=== PATIENT | female | born 1935 | race Caucasian/White ===

== ENCOUNTER 2017-02-13 09:22 | Observation (INO) | payer MEDICARE ==
[2017-02-13] MEDS ORDERED: ASPIRIN 81 MG TABLET, CHEWABLE PO ONE (09:25)
[2017-02-13 09:59] LABS: ABSOLUTE BASOPHILS # (AUTO) 0.1 10^3/uL (0.0-0.2); ABSOLUTE EOSINOPHILS # (AUTO) 0.1 10^3/uL (0.0-0.6); ABSOLUTE LYMPHOCYTES (AUTO) 1.7 10^3/uL (0.5-4.7); ABSOLUTE NEUT (AUTO) 9.8 10^3/uL (1.7-8.2); BASOPHILS % (AUTO) 0.6 % (0-2); EOSINOPHILS % (AUTO) 0.5 % (0-6); HEMATOCRIT 47.4 % (36.0-47.0); HEMOGLOBIN 15.7 g/dL (12.0-15.5); HGB HCT DIFFERENCE -0.3; LYMPHOCYTES % (AUTO) 13.8 % (13-45); MEAN CORPUSCULAR HGB CONC 33.1 g/dL (32.0-36.0); MEAN CORPUSCULAR VOLUME 94 fl (80-97); MONOCYTES % (AUTO) 7.8 % (3-13); RED BLOOD COUNT 5.07 10^6/uL (3.72-5.28); SEGMENTED NEUTROPHILS % (AUTO) 77.3 % (42-78); WHITE BLOOD COUNT 12.6 10^3/uL (4.0-10.5)
--- NOTE | 2017-02-13 10:02 | ER Document Report ---
ED General - General Mode of Arrival: Ambulatory Information source: Patient TRAVEL OUTSIDE OF THE [place] IN LAST 30 DAYS: No - HPI Onset: Other - see HPI note <GLORIA HAJI - Last Filed: 02/13/17 12:27> <MAMIKHANH - Last Filed: 02/13/17 14:23> - General Chief Complaint: Chest Pain Stated Complaint: CHEST PAIN Notes: Patient is a 81 year old female presenting to the ED for chest pain. Patient states she woke up last night around midnight and had "crushing" chest pain all over that lasted for 2 hours. Patient states that she couldn't lay down due to the pain. Patient states that she also had some nausea and vomiting last night. Patient had diarrhea this morning. Patient states the pain is gone but it went away very slowly. Patient states she used her emergency inhaler before going to bed and did not experience any shortness of breath. Patient states she has had some chest pain before about x1 each day for the last month. Patient states this pain was different as it was more severe and intense. Patient has seen a street flusher driver for her daily chest pains [facility]; patient had normal stress tests and labs completed by this street flusher driver. Patient's PCP is Dr. Mortensen. Patient now complains of weakness, nausea, and a headache. Patient's headache was onset yesterday and has continued; patient states it started gradually and describes it as tightness to her entire head. (GLORIA HAJI) - Related Data Allergies/Adverse Reactions: iodine Allergy (Verified 02/13/17 09:39) Sulfa (Sulfonamide Antibiotics) Allergy (Verified 02/13/17 09:38) Past Medical History - General Information source: Patient - Social History Smoking Status: Unknown if Ever Smoked Chew tobacco use (# tins/day): No Frequency of alcohol use: None Drug Abuse: None Family History: None Patient has suicidal ideation: No Patient has homicidal ideation: No - Past Medical History Cardiac Medical History: Reports: Hx Congestive Heart Failure, Hx DVT - leg, Hx Hypercholesterolemia, Hx Hypertension Pulmonary Medical History: Reports: Hx COPD Neurological Medical History: Reports: Hx Cerebrovascular Accident - x5 years ago GI Medical History: Reports: Hx Gastroesophageal Reflux Disease, Hx Hiatal Hernia Past Surgical History: Reports: Hx Herniorrhaphy, Hx Orthopedic Surgery - Right THR, Hx Tonsillectomy - Immunizations Hx Diphtheria, Pertussis, Tetanus Vaccination: Yes <GLORIA HAJI - Last Filed: 02/13/17 12:27> Review of Systems - Review of Systems Constitutional: See HPI, Weakness EENT: No symptoms reported Cardiovascular: See HPI, Chest pain Respiratory: See HPI, Cough Gastrointestinal: See HPI, Diarrhea, Nausea, Vomiting Genitourinary: No symptoms reported Female Genitourinary: No symptoms reported Musculoskeletal: No symptoms reported Skin: No symptoms reported Hematologic/Lymphatic: No symptoms reported Neurological/Psychological: See HPI, Headaches -: Yes All other systems reviewed and negative <GLORIA HAJI - Last Filed: 02/13/17 12:27> Physical Exam - Vital signs Interpretation: Tachycardic - General General appearance: Appears well, Alert In distress: Mild - HEENT Head: Normocephalic, Atraumatic Eyes: Normal Pupils: PERRL Ears: Normal, Other - hearing aid in left ear was removed by patient for ear examination External canal: Normal Tympanic membrane: Normal Mucous membranes: Moist - Respiratory Respiratory status: No respiratory distress Chest status: Nontender Breath sounds: Normal Chest palpation: Normal - Cardiovascular Rhythm: Regular Heart sounds: Normal auscultation Murmur: No - Abdominal Inspection: Normal Distension: No distension Bowel sounds: Normal Tenderness: Nontender Organomegaly: No organomegaly - Back Back: Normal, Nontender - Extremities General upper extremity: Normal inspection, Normal ROM, Normal strength General lower extremity: Normal inspection, Normal ROM, Normal strength, Other - no DVT. No: Edema - Neurological Neuro grossly intact: Yes Cognition: Normal Orientation: AAOx4 Sukhjinder Coma Scale Eye Opening: Spontaneous Sukhjinder Coma Scale Verbal: Oriented [place] Coma Scale Motor: Obeys Commands [place] Coma Scale Total: 15 Speech: Normal Sensory: Normal - Psychological Associated symptoms: Normal affect, Normal mood - Skin Skin Temperature: Warm Skin Moisture: Dry <GLORIA HAJI - Last Filed: 02/13/17 12:27> <KHANH BOLAÑOS - Last Filed: 02/13/17 14:23> - Vital signs Vitals: Temp Pulse Resp BP Pulse Ox 98.0 F 115 H 18 144/82 H 93 02/13/17 09:35 02/13/17 09:35 02/13/17 09:35 02/13/17 09:35 02/13/17 09:35 Course - Laboratory Result Diagrams: 02/13/17 09:54 02/13/17 09:54 <MUNAGLORIA FERNANDEZ - Last Filed: 02/13/17 12:27> - Laboratory Result Diagrams: 02/13/17 09:54 02/13/17 09:54 <KHANH BOLAÑOS - Last Filed: 02/13/17 14:23> - Re-evaluation Re-evalutation: 02/13/17 13:39 I personally performed the services described in the documentation, reviewed and edited the documentation which was dictated to my scribe in my presence, and it accurately records my words and actions. Patient presents emergency Department with 3 chief complaints one is a mild headache gradual onset a few days ago history headaches not the worst of her life not associated with blurred vision or double vision negative neurological examination her CT of the head. No fever or nuchal rigidity. Chest pain as a second complaint stated that last evening for about 2 hours she had severe chest pain that lasted about 2 hours constantly she wasn't short of breath with it she denied it radiated to her jaw her neck or back or her arm. She wanted bother anyone so she went to bed and it's been gone ever since. She vehemently denies that throughout the ED department visit. Her EKG is nonacute her troponin is negative her chest x-ray is nonacute. Patient has denied any chest pain since last night. She has had an extensive cardiac workup in the past except a heart catheterization which she did not want to have. She is no diagnosis of [place] or stents. Third complaint is nausea vomiting diarrhea electrolytes are normal patient relief with Zofran serial abdominal examinations no acute tenderness guarding rebound or rigidity. Obtain a straight catheter urinalysis per request of family no concerns for C. difficile I'll. Serial abdominal examinations no acute tenderness guarding rebound rigidity. Patient initially tachycardic, on reassessment and reevaluation heart rate is 95. She is not short of breath no syncopal event does have a history of a DVT is not short of breath no lower extremity signs of acute DVT and his arms are all toes and the need for PE study. 02/13/17 14:16 patient agrees to be admitted to the hospital accepted under hospitalist stamping machine operator service in stable condition 02/13/17 14:21 (KHANH BOLAÑOS) - Vital Signs Vital signs: Temp Pulse Resp BP Pulse Ox 98.0 F 115 H 10 L 150/74 H 94 02/13/17 09:35 02/13/17 09:35 02/13/17 14:01 02/13/17 14:01 02/13/17 14:01 - Laboratory Laboratory results interpreted by me: 02/13/17 02/13/17 09:54 09:54 WBC 12.6 H Hgb 15.7 H Hct 47.4 H Absolute Neutrophils 9.8 H BUN 21 H Glucose 120 H Calcium 10.4 H - EKG Interpretation by Me Additional EKG results interpreted by me: 02/13/17 14:21 EKG shows sinus tachycardia #[address] segment elevation or depression ( KHANH BOLAÑOS) Discharge <GLORIA HAJI - Last Filed: 02/13/17 12:27> - Discharge Admitting Provider: Hospitalist Unit Admitted: Telemetry <KHANH BOLAÑOS - Last Filed: 02/13/17 14:23> - Discharge Clinical Impression: cephalgia resolved, Nausea vomiting and diarrhea, chest pain resolved Condition: Stable Disposition: HOME, SELF-CARE Additional Instructions: Chest Pain of Unclear Cause The exact cause of your chest pain isn't clear. Fortunately, there is no evidence of a dangerous medical condition. Further testing may be required to find the source of the pain. Most often, we find that this pain is coming from the chest wall -- the muscles or rib joints in the chest. But chest pain can come from the lung and lung lining, the esophagus, the heart valves or heart lining, and even the stomach or gallbladder. Rest. Eat lightly until the pain is gone. We may prescribe medicine for pain and inflammation. You should call the physician immediately if the pain radiates to the shoulder, jaw or arms; if you start to run a fever or develop a cough; or if you develop shortness of breath, or other new or alarming symptoms. Headache The physician does not feel that the headache you are experiencing has a serious underlying cause. Most headaches are due to emotional stress, with resultant muscle tension (tension headache). Occasionally, headaches are secondary to changes in the blood vessels of the scalp (vascular headache and migraine headache). Sometimes, a headache is the first symptom of another developing illness, such as a viral infection. You have no evidence of stroke, bleeding, meningitis, or other serious cause of your headache. The treatment of headaches varies with the severity and cause of the pain. Not all headaches need pain shots. In fact, there is evidence that using narcotics for headaches may make them worse in the long run. The physician will determine the therapy that's in your best interest. If you develop a fever, if the headache is different from any you've previously experienced, or if the headache progressively worsens, then call your physician at once or go to the emergency room. Vomiting Vomiting can be part of many illnesses. Most cases of vomiting are due to gastroenteritis, usually a viral infection in the intestinal tract. There is no specific treatment. The disease will end by itself. For now, the main danger to your child is dehydration. During the first few hours of the illness, give clear liquids, such as Pedialyte. Try to give small quantities frequently, such as a teaspoon of liquid every minute or about an ounce of fluids every five to ten minutes. Medications may be prescribed by the physician for special cases. After an hour or two of fluids without vomiting, add rice cereal, toast, applesauce, or bananas and other more solid foods to the clear liquids. Call the physician or go to the hospital if vomiting increases or blood appears in the bowel movement or vomitus; if your child fails to improve, or if signs of dehydration occur (no wet diapers for eight to twelve hours, tongue and mouth become dry, not acting as alert as usual). Diarrhea Diarrhea means frequent, watery stools. There are many causes. Any problem that keeps the intestinal tract from absorbing water from the stool can lead to diarrhea. A sudden new diarrhea problem is usually caused by a virus, food sensitivity, toxic bacteria, or drugs. In this case, we expect the problem to go away soon. Testing is done only if you seem seriously ill from the diarrhea. If you have chronic diarrhea, or diarrhea that keeps coming back, we need to find out why. Chronic diarrhea can be due to inflammation of the bowels such as Crohn's disease or ulcerative colitis, food sensitivity such as intolerance to lactose or wheat protein, irritable bowel syndrome, and other problems. If your diarrhea is a significant problem but it's not clear why you have it, we' ll refer you to a specialist for further testing. During an episode of diarrhea, drink small amounts (two to six ounces) of clear liquids (soft drinks, sport drinks, herb teas, broth, etc). Take fluids frequently to prevent dehydration. It's usually not a problem to take mild anti- diarrhea medication such as Kaopectate or Pepto-Bismol. As the diarrhea eases, advance to small amounts of bland food (mashed potato, toast) for 24 hours. Call the physician if blood appears in your vomit or stool, if vomiting lasts longer than 24 hours, if the abdominal pain worsens or becomes localized to one area, if you develop high fever, or if you become lightheaded and weak. It is my recommendation that you be admitted to the hospital and see a street flusher driver and be discharged from the hospital with cardiology consultation you have chosen not to do so if you change your mind and want to come immediately back to the emergency department for any concerns whatsoever. Prescriptions: Ondansetron [Zofran Odt 4 mg Tablet] 1 - 2 tab PO Q4H PRN #15 tab.rapdis PRN Reason: For Nausea/Vomiting Referrals: MARCUS TAVARES MD [Primary Care Provider] - Follow up as needed Scribe Documentation - Scribe Written by Scriberic:: Gloria Haji 02/13/17 10:30 acting as scribe for :: Mami <GLORIA HAJI - Last Filed: 02/13/17 12:27>
[2017-02-13 10:18] LABS: ALANINE AMINOTRANSFERASE 18 U/L (9-52); ALBUMIN 4.6 g/dL (3.5-5.0); ALKALINE PHOSPHATASE 92 U/L (38-126); ANION GAP 16 (5-19); ASPARTATE AMINO TRANSFERASE 21 U/L (14-36); BILIRUBIN,DIRECT 0.2 mg/dL (0.0-0.4); BILIRUBIN,TOTAL 0.8 mg/dL (0.2-1.3); BLOOD UREA NITROGEN 21 mg/dL (7-20); CALCIUM 10.4 mg/dL (8.4-10.2); CARBON DIOXIDE 26 mmol/L (22-30); CHLORIDE 100 mmol/L (98-107); CREATINE KINASE 44 U/L (30-135); CREATININE RESULT 0.85 mg/dL (0.52-1.25); GLUCOSE 120 mg/dL (75-110); POTASSIUM 4.7 mmol/L (3.6-5.0); TOTAL PROTEIN 7.8 g/dL (6.3-8.2)
[2017-02-13] MEDS ORDERED: MORPHINE SULFATE 10 MG/ML INJ IV ONE (10:29)
[2017-02-13] MEDS ORDERED: ONDANSETRON HCL INJ/PF 4 MG/2 ML SDV IV ONE ×2 (10:29→13:32)
[2017-02-13 10:36] LABS: TROPONIN I < 0.012 ng/mL
--- NOTE | 2017-02-13 14:25 | ER Document Report ---
Doctor's Note Notes: 02/13/17 14:24 EKG sinus tachycardia [address] segment elevation or depression
[2017-02-13] MEDS ORDERED: ALBUTEROL SULFATE HFA (90 MCG/PUFF) 8 GM MDI (1 MDI/ER DISP) IH PRN (14:26)
[2017-02-13] MEDS ORDERED: ONDANSETRON HCL INJ/PF 4 MG/2 ML SDV IV PRN (14:28)
[2017-02-13] MEDS ORDERED: NITROGLYCERIN 0.4 MG/TAB 25 TAB/BOTTLE SL PRN (14:28)
[2017-02-13] MEDS ORDERED: ALBUTEROL SULFATE HFA (90 MCG/PUFF) 200 PUFF/8.5 GM MDI IH PRN (14:36)
[2017-02-13] MEDS: MORPHINE SULFATE 10 MG/ML INJ IV ONE (14:50)
--- NOTE | 2017-02-13 15:08 | EKG REPORT ---
SEVERITY:- OTHERWISE NORMAL ECG - SINUS TACHYCARDIA : Confirmed by: rEika Freedman 13-Feb-2017 15:08:17
[2017-02-13 15:39] LABS: APPEARANCE,URINE SLIGHTLY-CLOUDY; BILIRUBIN,URINE NEGATIVE (NEGATIVE); CALCIUM OXALATE CRYSTALS,URINE MODERATE /HPF; GLUCOSE, URINE NEGATIVE (NEGATIVE); KETONES,URINE NEGATIVE (NEGATIVE); LEUKOCYTE ESTERASE,URINE SMALL (NEGATIVE); NITRITE,URINE NEGATIVE (NEGATIVE); PROTEIN,URINE NEGATIVE (NEGATIVE); URINE SPECIFIC GRAVITY 1.023; UROBILINOGEN,URINE NEGATIVE mg/dL (<2.0)
[2017-02-13] MEDS ORDERED: LORAZEPAM 1 MG TABLET PO ONE (15:45)
[2017-02-13] MEDS ORDERED: KETOROLAC TROMETHAMINE INJ/PF 30 MG/1 ML SDV IV ONE (15:45)
--- NOTE | 2017-02-13 15:51 | PDOC H&P ---
History of Present Illness Admission Date/PCP: 02/13/17 14:29 MARCUS TAVARES MD Patient complains of: Chest pain that lasted for 3 hrs last night, nausea, vomiting and weakness History of Present Illness: RADHA RUBIO is a 81 year old female who presents to [facility]' s emergency room this morning with complaints of midsternal chest pain that occurred last evening and lasted for a total of 3 hours. She states the pain was intense. She was getting ready to go to bed, when the pain occurred. It was in the middle of her sternum and nonradiating. She states she was unable to lie down because of the pain. After the pain gradually resolved, she began having periods of nausea, vomiting and diarrhea have persisted until her presentation. She also complains of a headache, weakness, and mild joint achiness. She denies any other fever or chills. She has no ill family members at home at the present time. She has no prior history of angina. She states she did undergo complete cardiac workup within the ; they included nuclear stress test, echocardiogram and EKG. She does have a history of paroxysmal atrial fibrillation, COPD, aortic stenosis, and CVA. She has mild right-sided weakness as a result for CVA. She is able to ambulate without assistance. She no longer drives. She lives with her daughter and son-in-law. She states she's had chest pain prior which is what initiated cardiac workup. The pain at that time was not similar to the last denies pain. She's had no further recurrence of chest pain since last night. She has continued however, to have nausea, vomiting and diarrhea. Past Medical History Cardiac Medical History: Reports: Congestive Heart Failure, DVT - leg, Hyperlipidema, Hypertension Pulmonary Medical History: Reports: Chronic Obstructive Pulmonary Disease (COPD) EENT Medical History: Reports: None Neurological Medical History: Reports: Ischemic CVA Endocrine Medical History: Reports: None Renal/ Medical History: Reports: None Malignancy Medical History: Reports: None GI Medical History: Reports: Gastroesophageal Reflux Disease, Hiatal Hernia Musculoskeltal Medical History: Reports: None Skin Medical History: Reports: None Psychiatric Medical History: Reports: None Hematology: Reports: None Infectious Medical History: Reports: None Past Surgical History Past Surgical History: Reports: Herniorrhaphy, Orthopedic Surgery - Right THR, Tonsillectomy Social History Information Source: Patient Lives with: Family Smoking Status: Former Smoker Cigarettes Packs Per Day: 1 Number of Years Smokin Frequency of Alcohol Use: None Hx Recreational Drug Use: Yes Drugs: None - Advance Directive Resuscitation Status: Full Code Surrogate healthcare decision maker:: DaughterJoe Family History Family History: COPD, Hypertension Parental Family History Reviewed: Yes Children Family History Reviewed: Yes Sibling(s) Family History Reviewed.: Yes Medication/Allergy Home Medications: Acetaminophen [Tylenol Extra Strength 500 mg Tablet] 500 mg PO BID 02/13/17 Albuterol Sulfate [Proair HFA Inhalation Aerosol 8.5 gm MDI] 1 puff IH Q4HP PRN 02/13/17 Budesonide/Formoterol Fumarate [Symbicort HFA 160-4.5 mcg Inhaler 6 gm] 2 puff IH Q12 02/13/17 Diltiazem HCl [Diltiazem 24Hr Cd] 180 mg PO BID 02/13/17 Fish Oil/Borage/Flax/Om3,6,9#1 [[place] 3-6-9 1,200 mg Softgel] 1,200 mg PO DAILY 02/13/17 Fluticasone Propionate [Flonase Nasal [place] 50 Mcg/[place] 16 gm] 1 spray NASL DAILY 02/13/17 Levothyroxine Sodium [Synthroid] 100 mcg PO DAILY 02/13/17 Lorazepam [Ativan 1 mg Tablet] 1 mg PO TID 02/13/17 Montelukast Sodium [Singulair 10 mg Tablet] 10 mg PO QHS 02/13/17 Multivitamin [Daily Multiple Vitamin] 1 tab PO DAILY 02/13/17 Ondansetron [Zofran Odt 4 mg Tablet] 1 - 2 tab PO Q4H PRN #15 tab.rapdis Paroxetine HCl [Paxil] 10 mg PO QHS 02/13/17 Rivaroxaban [Xarelto] 20 mg PO DAILY 02/13/17 Spironolactone [Aldactone 25 mg Tablet] 25 mg PO DAILY 02/13/17 Tramadol HCl [Ultram] 100 mg PO TID 02/13/17 Allergies/Adverse Reactions: iodine Allergy (Verified 02/13/17 09:39) Sulfa (Sulfonamide Antibiotics) Allergy (Verified 02/13/17 09:38) Review of Systems Constitutional: PRESENT: chills, headache(s), weakness. ABSENT: fever(s), weight gain, weight loss Eyes: ABSENT: visual disturbances Ears: ABSENT: hearing changes Cardiovascular: PRESENT: chest pain. ABSENT: dyspnea on exertion, edema, orthropnea, palpitations Respiratory: PRESENT: cough, sputum Gastrointestinal: PRESENT: abdominal pain, diarrhea, nausea, vomiting Genitourinary: ABSENT: dysuria, hematuria Musculoskeletal: ABSENT: joint swelling Integumentary: ABSENT: rash, wounds Neurological: ABSENT: abnormal gait, abnormal speech, confusion, dizziness, focal weakness, syncope Psychiatric: ABSENT: anxiety, depression, homidical ideation, suicidal ideation Endocrine: ABSENT: cold intolerance, heat intolerance, polydipsia, polyuria Hematologic/Lymphatic: ABSENT: easy bleeding, easy bruising Physical Exam Vital Signs: Temp Pulse Resp BP Pulse Ox 98.0 F 115 H 10 L 150/74 H 94 02/13/17 09:35 02/13/17 09:35 02/13/17 14:01 02/13/17 14:01 02/13/17 14:01 General appearance: PRESENT: no acute distress, hard of hearing, well-developed , well-nourished Head exam: PRESENT: atraumatic, normocephalic Eye exam: PRESENT: conjunctiva pink, EOMI, PERRLA. ABSENT: scleral icterus Ear exam: PRESENT: normal external ear exam Mouth exam: PRESENT: moist, tongue midline Neck exam: ABSENT: carotid bruit, JVD, lymphadenopathy, thyromegaly Respiratory exam: PRESENT: clear to auscultation marvin. ABSENT: rales, rhonchi, wheezes Cardiovascular exam: PRESENT: RRR. ABSENT: diastolic murmur, rubs, systolic murmur Pulses: PRESENT: normal dorsalis pedis pul Vascular exam: PRESENT: normal capillary refill GI/Abdominal exam: PRESENT: hyperactive bowel sounds, soft. ABSENT: distended, guarding, mass, organolmegaly, rebound, tenderness Rectal exam: PRESENT: deferred Extremities exam: PRESENT: full ROM. ABSENT: calf tenderness, clubbing, pedal edema Musculoskeletal exam: PRESENT: ambulatory Neurological exam: PRESENT: alert, awake, oriented to person, oriented to place , oriented to time, oriented to situation, CN II-XII grossly intact. ABSENT: motor sensory deficit Psychiatric exam: PRESENT: appropriate affect, normal mood. ABSENT: homicidal ideation, suicidal ideation Skin exam: PRESENT: dry, intact, warm. ABSENT: cyanosis, rash Results Impressions: Chest X-Ray 02/13/17 09:25 IMPRESSION: Chronic bandlike atelectasis in the lingula. Benign calcified granuloma right upper lobe No acute changes Head CT 02/13/17 10:29 IMPRESSION: CHRONIC CHANGES OF ATROPHY AND MICROVASCULAR ISCHEMIA. NO ACUTE PROCESS. Assessment & Plan - Diagnosis (1) Chest pain Qualifiers: Chest pain type: unspecified Qualified Code(s): R07.9 - Chest pain, unspecified Is this a current diagnosis for this admission?: YesPlan: Atypical for cardiac. Lasting 3 hrs occurred at rest. Patient has history of hiatal hernia and GERD (2) Paroxysmal atrial fibrillation Is this a current diagnosis for this admission?: YesPlan: Patient Panzarella toe and Cardizem for rate control. Presently normal sinus rhythm (3) Essential (primary) hypertension Is this a current diagnosis for this admission?: YesPlan: Continue patient's home medication she is presently normotensive (4) Nausea vomiting and diarrhea Is this a current diagnosis for this admission?: YesPlan: Most likely viral in origin. We'll hydrate her gently with IV fluids overnight with when necessary Zofran (5) Right sided cerebral hemisphere cerebrovascular accident (CVA) Is this a current diagnosis for this admission?: YesPlan: Old right-sided residual weakness. (6) Hiatal hernia Is this a current diagnosis for this admission?: YesPlan: PPI therapy. Avoid heavy large meals. Eating prior to bedtime (7) COPD (chronic obstructive pulmonary disease) Qualifiers: COPD type: chronic bronchitis Is this a current diagnosis for this admission?: YesPlan: Continue inhalers. - Time Time Spent: 50 to 70 Minutes Critical Time spent with patient: 25-34 minutes Medications reviewed and adjusted accordingly: Yes Anticipated discharge: Home
[2017-02-13] MEDS ORDERED: DILTIAZEM HCL 120 MG CAP.SR.24H PO SCH (18:00)
[2017-02-13] MEDS: NORMAL SALINE 1000 ML 1,000 ML IV PRN (18:44)
[2017-02-13] MEDS: ACETAMINOPHEN 325 MG TABLET PO PRN (21:56)
[2017-02-13] MEDS: TRAMADOL HCL 50 MG TABLET PO PRN (21:57)
[2017-02-13] MEDS: DILTIAZEM HCL 120 MG CAP.SR.24H PO SCH (21:57)
[2017-02-13] MEDS: LORAZEPAM 1 MG TABLET PO SCH (21:58)
[2017-02-13] MEDS: BUDESONIDE/FORMOTEROL 160-4.5 MCG 60 PUFF/6 GM MDI IH SCH (21:59)
[2017-02-13] MEDS ORDERED: PAROXETINE HCL 20 MG TABLET PO SCH (22:00)
[2017-02-13] MEDS ORDERED: (PENDING PHARMACY ID) (Paroxetine Hcl [Paxil] 10 MG) PO SCH (22:00)
[2017-02-13] MEDS ORDERED: MONTELUKAST SODIUM 10 MG TABLET PO SCH (22:00)
[2017-02-14] MEDS: NORMAL SALINE 1000 ML 1,000 ML IV PRN ×2 (02:43→05:56)
[2017-02-14 05:02] LABS: CHOLESTEROL 211.62 mg/dL (0-200); Direct HDL 64 mg/dL (>40); TRIGLYCERIDES 145 mg/dL (<150)
[2017-02-14 05:13] LABS: DIRECT LDL 109 mg/dL (<100)
[2017-02-14] MEDS: LORAZEPAM 1 MG TABLET PO SCH (05:54)
[2017-02-14] MEDS: ACETAMINOPHEN 325 MG TABLET PO PRN (06:08)
[2017-02-14] MEDS ORDERED: LEVOTHYROXINE SODIUM 0.1 MG TABLET PO SCH (08:00)
[2017-02-14 09:39] VITALS: BP 136/61
[2017-02-14] MEDS ORDERED: SPIRONOLACTONE 25 MG TABLET PO SCH (10:00)
[2017-02-14] MEDS ORDERED: FLUTICASONE NASAL SPRAY 50 MCG/SPRY 120 SPRAY/16 GM NASL SCH (10:00)
[2017-02-14] MEDS ORDERED: RIVAROXABAN 10 MG TABLET PO SCH (10:00)
[2017-02-14] MEDS ORDERED: ASPIRIN 81 MG TABLET, ENT COATED PO SCH (10:00)
[2017-02-14] MEDS: DILTIAZEM HCL 120 MG CAP.SR.24H PO SCH (11:46)
[2017-02-14] MEDS: BUDESONIDE/FORMOTEROL 160-4.5 MCG 60 PUFF/6 GM MDI IH SCH (11:50)
[2017-02-14] MEDS: TRAMADOL HCL 50 MG TABLET PO PRN (11:55)
--- NOTE | 2017-02-14 14:55 | PDOC DISCHARGE SUMMARY ---
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) Is this a current diagnosis for this admission?: Yes (6) Hiatal hernia Is this a current diagnosis for this admission?: Yes (7) COPD (chronic obstructive pulmonary disease) Is this a current diagnosis for this admission?: Yes - Additional Information Resuscitation Status: Full Code Discharge Diet: Regular Discharge Activity: Activity As Tolerated, Balance Activity w/Rest Home Medications: Acetaminophen [Tylenol Extra Strength 500 mg Tablet] 500 mg PO BID 02/13/17 Albuterol Sulfate [Proair HFA Inhalation Aerosol 8.5 gm MDI] 1 puff IH Q4HP PRN 02/13/17 Budesonide/Formoterol Fumarate [Symbicort HFA 160-4.5 mcg Inhaler 6 gm] 2 puff IH Q12 02/13/17 Diltiazem HCl [Diltiazem 24Hr Cd] 180 mg PO BID 02/13/17 Fish Oil/Borage/Flax/Om3,6,9#1 [[place] 3-6-9 1,200 mg Softgel] 1,200 mg PO DAILY 02/13/17 Fluticasone Propionate [Flonase Nasal [place] 50 Mcg/[place] 16 gm] 1 spray NASL DAILY 02/13/17 Levothyroxine Sodium [Synthroid] 100 mcg PO DAILY 02/13/17 Lorazepam [Ativan 1 mg Tablet] 1 mg PO TID 02/13/17 Montelukast Sodium [Singulair 10 mg Tablet] 10 mg PO QHS 02/13/17 Multivitamin [Daily Multiple Vitamin] 1 tab PO DAILY 02/13/17 Paroxetine HCl [Paxil] 10 mg PO QHS 02/13/17 Rivaroxaban [Xarelto] 20 mg PO DAILY 02/13/17 Spironolactone [Aldactone 25 mg Tablet] 25 mg PO DAILY 02/13/17 Tramadol HCl [Ultram] 100 mg PO TID 02/13/17 Ondansetron [Zofran Odt 4 mg Tablet] 1 - 2 tab PO Q4H PRN #15 tab.rapdis History of Present Illness Patient complains of: Chest pain History of Present Illness: RADHA RUBIO is a 81 year old female who presents to [facility] emergency room this morning with complaints of midsternal chest pain that occurred last evening and lasted for a total of 3 hours. She states the pain was intense. She was getting ready to go to bed, when the pain occurred. It was in the middle of her sternum and nonradiating. She states she was unable to lie down because of the pain. After the pain gradually resolved, she began having periods of nausea, vomiting and diarrhea have persisted until her presentation. She also complains of a headache, weakness, and mild joint achiness. She denies any other fever or chills. She has no ill family members at home at the present time. She has no prior history of angina. She states she did undergo complete cardiac workup within the ; they included nuclear stress test, echocardiogram and EKG. She does have a history of paroxysmal atrial fibrillation, COPD, aortic stenosis, and CVA. She has mild right-sided weakness as a result for CVA. She is able to ambulate without assistance. She no longer drives. She lives with her daughter and son-in-law. She states she's had chest pain prior which is what initiated cardiac workup. The pain at that time was not similar to the last denies pain. She's had no further recurrence of chest pain since last night. She has continued however, to have nausea, vomiting and diarrhea. Hospital Course Hospital Course: Patient was this is largely service. She did serial troponins done overnight to rule out acute coronary syndrome. She no further episodes of chest discomfort. Nausea and vomiting did resolve with IV Zofran and fluids. This morning she feels much improved. She wishes to go home. I feel this pain she had adela likely GI in origin from her viral gastroenteritis and hiatal hernia. She had a normal nuclear stress test within the last year. She can follow-up with her primary care provider if she has any further symptoms. She' ll be discharged home with her daughter. Physical Exam Vital Signs: Temp Pulse Resp BP Pulse Ox 98.5 F 85 20 136/61 H 97 02/14/17 11:58 02/14/17 11:58 02/14/17 11:58 02/14/17 08:05 02/14/17 11:58 Intake & Output 02/13/17 02/14/17 02/15/17 06:59 06:59 06:59 Intake Total 1883 Balance 1883 Weight 72.9 kg General appearance: PRESENT: no acute distress, well-developed, well-nourished Head exam: PRESENT: atraumatic, normocephalic Eye exam: PRESENT: conjunctiva pink, EOMI, PERRLA. ABSENT: scleral icterus Ear exam: PRESENT: normal external ear exam Mouth exam: PRESENT: moist, tongue midline Neck exam: ABSENT: carotid bruit, JVD, lymphadenopathy, thyromegaly Respiratory exam: PRESENT: clear to auscultation marvin. ABSENT: rales, rhonchi, wheezes Cardiovascular exam: PRESENT: RRR. ABSENT: diastolic murmur, rubs, systolic murmur Pulses: PRESENT: normal dorsalis pedis pul Vascular exam: PRESENT: normal capillary refill GI/Abdominal exam: PRESENT: normal bowel sounds, soft. ABSENT: distended, guarding, mass, organolmegaly, rebound, tenderness Rectal exam: PRESENT: deferred Extremities exam: PRESENT: full ROM. ABSENT: calf tenderness, clubbing, pedal edema Neurological exam: PRESENT: alert, awake, oriented to person, oriented to place , oriented to time, oriented to situation, CN II-XII grossly intact. ABSENT: motor sensory deficit Psychiatric exam: PRESENT: appropriate affect, normal mood. ABSENT: homicidal ideation, suicidal ideation Skin exam: PRESENT: dry, intact, warm. ABSENT: cyanosis, rash Results Laboratory Results: 02/13/17 02/14/17 14:50 04:00 Triglycerides 145 Cholesterol 211.62 H LDL Cholesterol Direct 109 H VLDL Cholesterol 29.0 HDL Cholesterol 64 Urine Color YELLOW Urine Appearance SLIGHTLY-CLOUDY Urine pH 5.0 Ur Specific Economy 1.023 Urine Protein NEGATIVE Urine Glucose (UA) NEGATIVE Urine Ketones NEGATIVE Urine Blood NEGATIVE Urine Nitrite NEGATIVE Ur Leukocyte Esterase SMALL H Urine WBC (Auto) 25 Urine RBC (Auto) 2 02/13/17 02/13/17 02/14/17 15:50 22:00 04:00 Troponin I < 0.012 < 0.012 < 0.012 Impressions: Chest X-Ray 02/13/17 09:25 IMPRESSION: Chronic bandlike atelectasis in the lingula. Benign calcified granuloma right upper lobe No acute changes Head CT 02/13/17 10:29 IMPRESSION: CHRONIC CHANGES OF ATROPHY AND MICROVASCULAR ISCHEMIA. NO ACUTE PROCESS. Qualifiers PATEINT BEING DISCHARGED WITH ANY OF THE FOLLOWING DIAGNOSIS?: No Plan Discharge Plan: Home with daughter, follow-up with her primary care provider. Time Spent: Less than 30 Minutes
== END 2017-02-14 12:25 | disposition home or self-care (01) ==
LOC: ER 09:22 → EH 14:29 → UNDOADMOB 14:51 → 5 16:50
PROVIDERS: ADMIT Family Medicine; ATTEND Family Medicine
PROC: 3E033GC Introduction of Other Therapeutic Substance into Peripheral Vein, Percutaneous Approach (ICD-10-PCS; principal; 2017-02-13)
PROC: 3E033GC Introduction of Other Therapeutic Substance into Peripheral Vein, Percutaneous Approach (ICD-10-PCS; 2017-02-13)
PROC: 3E033GC Introduction of Other Therapeutic Substance into Peripheral Vein, Percutaneous Approach (ICD-10-PCS; 2017-02-13)
DX: R07.9 Chest pain, unspecified (principal); R11.2 Nausea with vomiting, unspecified; I48.0 Paroxysmal atrial fibrillation; R19.7 Diarrhea, unspecified; J44.9 Chronic obstructive pulmonary disease, unspecified; K44.9 Diaphragmatic hernia without obstruction or gangrene; I69.351 Hemiplegia and hemiparesis following cerebral infarction affecting right dominant side; I11.0 Hypertensive heart disease with heart failure; I50.9 Heart failure, unspecified; Z87.891 Personal history of nicotine dependence
CPT/HCPCS: 93005; 96376; 99285; 96374; 96375; 36415 ×2; 82553; 82550; 85025; 80053; 81001; 84484 ×2; 80061; 71010; 70450; 93010; G0378 ×3; A9270 ×15; J3490; J1885; J2270; J2405; J7030 ×2